=== PATIENT | female | born 1965 | race Caucasian/White ===

== ENCOUNTER 2017-02-17 04:54 | Emergency (ER) | payer SELFPAY ==
[~2017-02-17] VITALS: Ht 157.5 cm; Wt 95.3 kg
[~2017-02-17 04:54] MED LIST: FERR-193 PO; LOSA25TA14 PO
[2017-02-17 05:00] VITALS: BP 145/85
--- NOTE | 2017-02-17 05:07 | NUR ---
PT TAKEN TO BED 7
--- NOTE | 2017-02-17 05:11 | NUR ---
Dr. Redding evaluating patient at bedside.
[2017-02-17] MEDS ORDERED: NACL 0.9% 1,000 ML IV ONE (05:15)
--- NOTE | 2017-02-17 05:27 | NUR ---
Sammy ferguson in ED - 02/17/17 at [address] Redding performing pelvic exam with EMT Anju L as a female residential assistant.
--- NOTE | 2017-02-17 05:44 | NUR ---
Dr. Redding performing pelvic exam with EMT Anju L as a female straightener.
--- NOTE | 2017-02-17 05:44 | NUR ---
Female Jewish Thought Professor (ROYAL REMY EMT) accompanied ER MD female patient for Pelvic Exam.
--- NOTE | 2017-02-17 06:00 | NUR ---
Ultrasound at bedside.
[2017-02-17 06:10] LABS: BASOPHILS # (AUTO) 0.2 K/uL (0.00-0.22); BASOPHILS % (AUTO) 1.7 % (0.0-2.0); EOSINOPHILS # (AUTO) 0.1 K/uL (0-0.4); EOSINOPHILS % (AUTO) 0.9 % (0.0-4.0); HEMATOCRIT 34.1 % (36-48); LYMPHOCYTES # (AUTO) 1.9 K/uL (2.5-16.5); LYMPHOCYTES % (AUTO) 18.3 % (20.5-51.1); MEAN CORPUSCULAR HEMOGLOBIN 28 pg (27-31); MEAN CORPUSCULAR HGB CONC 32 g/dL (33-37); MEAN CORPUSCULAR VOLUME 88 fL (80-94); MONOCYTES # (AUTO) 0.7 K/uL (0.8-1.0); MONOCYTES % (AUTO) 6.3 % (1.7-9.3); NEUTROPHILS # (AUTO) 7.5 K/uL (1.8-7.7); NEUTROPHILS % (AUTO) 72.8 % (42.2-75.2); PLATELET COUNT (AUTO) 375 K/uL (140-450); RED BLOOD CELL COUNT(AUTO) 3.86 MIL/uL (4.20-5.40); RED CELL DISTRIBUTION WIDTH 13.5 % (11.6-13.7); WHITE BLOOD COUNT (AUTO) 10.4 K/uL (4.8-10.8)
[2017-02-17 06:11] LABS: ANION GAP 11.5 (8-16); CALCIUM 7.8 mg/dL (8.5-10.1); CARBON DIOXIDE 27.4 mmol/L (21-32); CREATININE 0.7 mg/dL (0.6-1.3); POTASSIUM 3.9 mmol/L (3.5-5.1); PROTHROMBIN TIME 9.5 secs (10.8-13.4)
[2017-02-17 06:15] LABS: ALBUMIN 2.7 g/dL (3.4-5.0); TOTAL BILIRUBIN 0.1 mg/dL (0.0-1.0); TOTAL PROTEIN, SERUM 6.2 g/dL (6.4-8.2)
[2017-02-17] MEDS ORDERED: ESTROGENS CONJUGATED 25 MG INJ VIAL IM ONE (06:20)
[2017-02-17] MEDS ORDERED: WATER STERILE 10 ML MC ONE (07:00)
--- NOTE | 2017-02-17 07:00 | NUR ---
REPORT TO BILLY RAUSCH
--- NOTE | 2017-02-17 08:11 | NUR ---
IV removed, catheter intact and site benign. Applied folded 4x4 gauze and tape to stop bleeding.
[2017-02-17 08:30] VITALS: BP 156/70
--- NOTE | 2017-02-17 08:30 | NUR ---
Chart checked and completed. The patient's care was reviewed and supervised by Jeanine Lan RN.
== END 2017-02-17 08:30 | disposition home or self-care (01) ==
LOC: MED 04:54
DX: N93.8 Other specified abnormal uterine and vaginal bleeding (principal); I10 Essential (primary) hypertension
CPT/HCPCS: 36415; 76856; 80053; 81002; 81025; 85025; 85610; 86886; 86900; 86901; 96360; 96361; 96372; 99285; J1410; J7030; Q0092

== ENCOUNTER 2017-04-15 23:27 | Emergency (ER) | payer SELFPAY ==
[~2017-04-15] VITALS: Ht 157.5 cm; Wt 98.0 kg
[2017-04-15 23:30] VITALS: BP 175/86
--- NOTE | 2017-04-16 00:09 | NUR ---
PATIENT AMBULATED TO BED 4.
--- NOTE | 2017-04-16 00:15 | NUR ---
51Y/F PATIENT PRESENTS TO ED WITH C/O FEVER X 1 DAYS . PT STATES HAVING PERIOD 5 DAYS, TODAY HAVING FEVER. DENIES N/V/D; SKIN IS PINK/WARM/DRY; AAOX4 WITH EVEN AND STEADY GAIT; LUNGS CLEAR BL; HR EVEN AND REGULAR; PT DENIES ANY FEVER, CP, SOB, OR COUGH AT THIS TIME; PATIENT STATES PAIN OF 0/10 AT THIS TIME; VSS; PATIENT POSITIONED FOR COMFORT; HOB ELEVATED; BEDRAILS UP X2; BED DOWN. ER MD MADE AWARE OF PT STATUS.
--- NOTE | 2017-04-16 00:45 | NUR ---
Patient being evaluated by at bedside.
--- NOTE | 2017-04-16 01:30 | NUR ---
Patient discharged with v/s stable. Written and verbal after care instructions given and explained. Patient alert, oriented and verbalized understanding of instructions. Ambulatory with steady gait. All questions addressed prior to discharge. ID band removed. Patient advised to follow up with PMD. Rx of MOTRIN 800 MG, CIPRO 500 MG given. Patient educated on indication of medication including possible reaction and side effects. Opportunity to ask questions provided and answered.
[2017-04-16 01:33] VITALS: BP 165/85
== END 2017-04-16 01:30 | disposition home or self-care (01) ==
LOC: MED 23:27
DX: N39.0 Urinary tract infection, site not specified (principal); R50.9 Fever, unspecified; I10 Essential (primary) hypertension
CPT/HCPCS: 81002; 81025; 99283

== ENCOUNTER 2017-05-05 20:07 | Emergency (ER) | payer MEDICAID ==
[~2017-05-05] VITALS: Ht 157.5 cm; Wt 98.7 kg
[2017-05-05 20:15] VITALS: BP 153/108
--- NOTE | 2017-05-05 21:06 | NUR ---
TO ER BED 7
--- NOTE | 2017-05-05 21:08 | NUR ---
PATIENT PRESENTS TO ED WITH DIZZINESS, WITH ONE MONTH MENSTRATION. PT STATES MED HX HTN. DENIES N/V/D; SKIN IS PINK/WARM/DRY; AAOX4 WITH EVEN AND STEADY GAIT; LUNGS CLEAR BL; HR EVEN AND REGULAR; PT DENIES ANY FEVER, CP, SOB, OR COUGH AT THIS TIME; PATIENT STATES PAIN OF 0/10 AT THIS TIME; VSS; PATIENT POSITIONED FOR COMFORT; HOB ELEVATED; BEDRAILS UP X2; BED DOWN. ER MD MADE AWARE OF PT STATUS.
[2017-05-05 22:28] LABS: BASOPHILS # (AUTO) 0.2 K/uL (0.00-0.22); EOSINOPHILS % (AUTO) 2.1 % (0.0-4.0); NEUTROPHILS # (AUTO) 8.5 K/uL (1.8-7.7)
[2017-05-05 22:34] LABS: BASOPHILS % (AUTO) 1.5 % (0.0-2.0); EOSINOPHILS # (AUTO) 0.3 K/uL (0-0.4); HEMATOCRIT 37.9 % (36-48); HEMOGLOBIN 12.4 g/dL (12.0-16.0); LYMPHOCYTES # (AUTO) 2.1 K/uL (2.5-16.5); MEAN CORPUSCULAR HEMOGLOBIN 30 pg (27-31); MEAN CORPUSCULAR HGB CONC 33 g/dL (33-37); MEAN CORPUSCULAR VOLUME 91 fL (80-94); MONOCYTES # (AUTO) 0.8 K/uL (0.8-1.0); MONOCYTES % (AUTO) 6.5 % (1.7-9.3); NEUTROPHILS % (AUTO) 71.9 % (42.2-75.2); PLATELET COUNT (AUTO) 443 K/uL (140-450); RED BLOOD CELL COUNT(AUTO) 4.19 MIL/uL (4.20-5.40); RED CELL DISTRIBUTION WIDTH 16.4 % (11.6-13.7); WHITE BLOOD COUNT (AUTO) 11.9 K/uL (4.8-10.8)
[2017-05-05 22:42] LABS: ALBUMIN 3.1 g/dL (3.4-5.0); ANION GAP 11.4 (8-16); CALCIUM 8.8 mg/dL (8.5-10.1); CARBON DIOXIDE 27.4 mmol/L (21-32); CREATININE 0.7 mg/dL (0.6-1.3); POTASSIUM 3.8 mmol/L (3.5-5.1); TOTAL BILIRUBIN 0.2 mg/dL (0.0-1.0); TOTAL PROTEIN, SERUM 7.2 g/dL (6.4-8.2)
[2017-05-05 22:49] LABS: CREATINE KINASE MB 0.3 ng/mL (0-3.6)
--- NOTE | 2017-05-05 23:16 | NUR ---
PT RESTING IN BED. NO SOB NOTED AT THIS TIME. WILL CONTINUE TO MONITOR.
[2017-05-05 23:53] LABS: APPEARANCE,URINE SL CLOUDY (CLEAR); BILIRUBIN,URINE NEGATIVE (NEGATIVE); BLOOD, URINE 3+ (NEGATIVE); LEUKOCYTE ESTERASE ,URINE NEGATIVE (NEGATIVE); NITRITE, URINE NEGATIVE (NEGATIVE); PROTEIN,URINE TRACE (NEGATIVE); UGLUCOSE NEGATIVE (NEGATIVE); UROBILINOGEN,URINE 0.2 EU/dL (0.2 - 1)
[2017-05-06 00:11] LABS: COLOR,URINE REDDISH (YELLOW)
[2017-05-06 00:13] LABS: BACTERIA,URINE FEW /HPF (None Seen); RBC,URINE TOO NUMEROUS TO COUN /HPF (0-5); SQUAMOUS EPITHELIAL CELL,UR 0-3 (FEW) /LPF (0-3 (FEW))
[2017-05-06 00:23] VITALS: BP 146/84
--- NOTE | 2017-05-06 00:25 | NUR ---
Patient discharged with v/s stable. Written and verbal after care instructions given and explained. Patient alert, oriented and verbalized understanding of instructions. Ambulatory with steady gait. All questions addressed prior to discharge. ID band removed. Patient advised to follow up with PMD. NO Rx WERE given. Patient educated on indication of medication including possible reaction and side effects. Opportunity to ask questions provided and answered.
== END 2017-05-06 00:24 | disposition home or self-care (01) ==
LOC: MED 20:07
DX: R42 Dizziness and giddiness (principal); R20.0 Anesthesia of skin; I10 Essential (primary) hypertension
CPT/HCPCS: 36415; 71010; 80053; 81001; 82550; 82553; 84484; 85025; 93005; 99285

== ENCOUNTER 2017-05-30 08:27 | Inpatient (IN) | payer MEDICAID ==
[~2017-05-30] VITALS: Ht 157.5 cm; Wt 97.6 kg
[2017-05-30 08:33] VITALS: BP 125/66
[2017-05-30] MEDS ORDERED: NACL 0.9% 1,000 ML IV SCH (08:40)
[2017-05-30] MEDS ORDERED: ONDANSETRON 4 MG/2 ML VIAL IVP ONE (08:40)
--- NOTE | 2017-05-30 08:41 | NUR ---
PATIENT AMBULATED TO ER BED 7.
--- NOTE | 2017-05-30 08:52 | NUR ---
PATIENT TO ER BED 8.
--- NOTE | 2017-05-30 09:03 | NUR ---
PATIENT BEING EVALUATED BY DR. ZARCO
[2017-05-30 09:04] LABS: BASOPHILS # (AUTO) 0.2 K/uL (0.00-0.22); BASOPHILS % (AUTO) 1.8 % (0.0-2.0); EOSINOPHILS # (AUTO) 0.1 K/uL (0-0.4); EOSINOPHILS % (AUTO) 1.2 % (0.0-4.0); HEMOGLOBIN 9.9 g/dL (12.0-16.0); LYMPHOCYTES # (AUTO) 1.6 K/uL (2.5-16.5); LYMPHOCYTES % (AUTO) 16.4 % (20.5-51.1); MEAN CORPUSCULAR HEMOGLOBIN 28 pg (27-31); MEAN CORPUSCULAR HGB CONC 32 g/dL (33-37); MEAN CORPUSCULAR VOLUME 89 fL (80-94); MONOCYTES # (AUTO) 0.5 K/uL (0.8-1.0); MONOCYTES % (AUTO) 4.7 % (1.7-9.3); NEUTROPHILS # (AUTO) 7.4 K/uL (1.8-7.7); NEUTROPHILS % (AUTO) 75.9 % (42.2-75.2); PLATELET COUNT (AUTO) 432 K/uL (140-450); RED BLOOD CELL COUNT(AUTO) 3.46 MIL/uL (4.20-5.40); RED CELL DISTRIBUTION WIDTH 14.4 % (11.6-13.7); WHITE BLOOD COUNT (AUTO) 9.8 K/uL (4.8-10.8)
--- NOTE | 2017-05-30 09:05 | NUR ---
US AT BEDSIDE.
--- NOTE | 2017-05-30 09:07 | NUR ---
52/F c/o vaginal bleeding for the past 3 days. Pt states hx of blood transfusions in the past. Pt states she is bleeding heavy. Denies dizziness. Denies SOB or chest pain. Denies vomiting or diarrhea. AOX4, clear speech. VSS.
[2017-05-30 09:11] LABS: ANION GAP 13.8 (8-16); CARBON DIOXIDE 25.9 mmol/L (21-32); CREATININE 0.9 mg/dL (0.6-1.3); POTASSIUM 3.7 mmol/L (3.5-5.1)
[2017-05-30 09:12] LABS: APPEARANCE,URINE TURBID (CLEAR); BILIRUBIN,URINE 1+ (NEGATIVE); BLOOD, URINE 3+ (NEGATIVE); LEUKOCYTE ESTERASE ,URINE NEGATIVE (NEGATIVE); NITRITE, URINE NEGATIVE (NEGATIVE); PH,URINE 5.5 (5.0-9.0); PROTEIN,URINE 2+ (NEGATIVE); UGLUCOSE NEGATIVE (NEGATIVE); UROBILINOGEN,URINE 0.2 EU/dL (0.2 - 1)
[2017-05-30 09:13] LABS: COLOR,URINE RED (YELLOW)
[2017-05-30 09:17] LABS: ALBUMIN 2.7 g/dL (3.4-5.0); TOTAL BILIRUBIN 0.2 mg/dL (0.0-1.0); TOTAL PROTEIN, SERUM 6.2 g/dL (6.4-8.2)
[2017-05-30 09:19] LABS: BACTERIA,URINE 1+ /HPF (None Seen); ICTOTEST NEGATIVE (NEGATIVE); MUCUS,URINE 1+ /LPF (None Seen); RBC,URINE 50-80 /HPF (0-5); SQUAMOUS EPITHELIAL CELL,UR 0-3 /LPF (0-3 (FEW)); WBC,URINE 0-3 /HPF (0-5)
--- NOTE | 2017-05-30 10:36 | NUR ---
Patient appears to be resting comfortably in bed. VSS.
[2017-05-30] MEDS ORDERED: ONDANSETRON 4 MG/2 ML VIAL IVP PRN (10:55)
[2017-05-30] MEDS ORDERED: ZOLPIDEM 5 MG TAB PO PRN (10:55)
[2017-05-30] MEDS ORDERED: HYDROcodone/APAP 5/325 MG 1 TAB TAB PO PRN (10:55)
[2017-05-30] MEDS ORDERED: ACETAMINOPHEN 325 MG TAB PO PRN (10:55)
[2017-05-30] MEDS ORDERED: LOSA50TA39 PO (11:04)
[2017-05-30] MEDS ORDERED: FERR325E14 PO (11:04)
[2017-05-30 11:26] LABS: FREE T4 (FREE THYROXINE) 1.21 ng/dL (0.76-1.46); MAGNESIUM 1.9 mg/dL (1.8-2.4); PHOSPHORUS 2.7 mg/dL (2.5-4.9); THYROID STIMULATING HORMONE 1.12 uIU/mL (0.34-3.74)
--- NOTE | 2017-05-30 11:52 | NUR ---
Patient will be admitted to care of Dr. Charles. Admited to TELE. Will go to room 106-B. Belongings list completed. Report to Cindy CERVANTES.
--- NOTE | 2017-05-30 11:58 | NUR ---
Pt transferred to Tele 106-B via gurpointblank on check grader accompaned by EMT Mone and AIRPORT CONTROL OPERATOR Letitia. All belongings sent with patient to room 106-B. VSS.
[2017-05-30 12:05] VITALS: BP 118/68
--- NOTE | 2017-05-30 12:05 | NUR ---
RECEIVED PT ON UNIT. PT ARRIVED ON [facility], [place]. AMBULATED IN ROOM AND UP TO BATHROOM. EDUCATED PT ON UNIT AND SAFETY. PT VERBALIZED UNDERSTANDING. VS: BP 118/68, HR 85, O2 97%, RR 18, TEMP 98.5. CALL LIGHT WITHIN REACH BED IN LOW POSITION. PT IN STABLE CONDITION. WILL CONTINUE TO MONITOR.
--- NOTE | 2017-05-30 13:50 | NUR ---
PT IS RESTING IN BED AT THIS TIME, NO S/S OF RESPIRATORY DISTRESS OR DISCOMFORT NOTED, CALL LIGHT WITHIN REACH.
[2017-05-30] MEDS: NACL 0.9% 1,000 ML IV SCH (15:33)
[2017-05-30 16:00] VITALS: BP 143/73
--- NOTE | 2017-05-30 16:00 | NUR ---
PT AWAKE. FAMILY AT BEDSIDE. PT IN STABLE CONDITION. WILL CONTINUE TO MONITOR.
--- NOTE | 2017-05-30 18:15 | NUR ---
PT IS RESTING IN BED USING HER CELL PHONE, CALL LIGHT WITHIN REACH.
--- NOTE | 2017-05-30 19:15 | NUR ---
ENDORSED PT TO POLISHER NUMERAL NURSE FOR CONTINUITY OF CARE. PT STABLE AT THIS TIME.
--- NOTE | 2017-05-30 19:20 | NUR ---
RECEIVED REPORTS FROM DAY RN. PATIENT RESTING IN BED, NO S/S OF ACUTE DISTRESS NOTED, RESPIRATION EVEN AND UNLABORED, PATIENT DENIES PAIN AT THIS TIME. IV INTACT AND PATENT, INFUSING NS AT 60ML/HR. CALL LIGHT WITHIN REACH, SIDE RAILS UP X 2, BED AT LOWEST POSITION. WILL CONTINUE TO MONITOR.
[2017-05-30 20:00] VITALS: BP 113/63
--- NOTE | 2017-05-30 22:14 | NUR ---
EXAMINED PATIENT'S PERINEAL PAD FOR BLEEDING, LIGHT AMOUNT OF BRIGHT RED BLOOD NOTED, PATIENT DENIES PAIN AT THIS TIME, INSTRUCTED PATIENT TO SAFE ALL THE VISHNU PADS FOR NURSING ASSESSMENT.
[2017-05-31] VITALS: BP 134/64
--- NOTE | 2017-05-31 00:15 | NUR ---
PATIENT SLEEPING IN BED, NO S/S OF ACUTE DISTRESS NOTED, RESPIRATION EVEN AND UNLABORED, CALL LIGHT WITHIN REACH, SAFETY MEASURE ENSURED, WILL CONTINUE TO MONITOR.
--- NOTE | 2017-05-31 02:05 | NUR ---
VISHNU PAD X1, MODERATED AMOUNT. PATIENT SLEEPING IN BED, NO S/S OF ACUTE DISTRESS NOTED, RESPIRATION EVEN AND UNLABORED, WILL CONTINUE TO MONITOR.
[2017-05-31 04:00] VITALS: BP 129/70
--- NOTE | 2017-05-31 04:23 | NUR ---
VISHNU PAD X 1, MODERATE AMOUNT OF BLOOD, PATIENT SLEEPING IN BED, EASY TO AROUSE, NO S/S OF ACUTE DISTRESS NOTED, WILL CONTINUE TO MONITOR.
[2017-05-31 06:12] LABS: BASOPHILS # (AUTO) 0.1 K/uL (0.00-0.22); BASOPHILS % (AUTO) 1.8 % (0.0-2.0); EOSINOPHILS # (AUTO) 0.2 K/uL (0-0.4); EOSINOPHILS % (AUTO) 2.7 % (0.0-4.0); HEMATOCRIT 24.6 % (36-48); HEMOGLOBIN 7.7 g/dL (12.0-16.0); LYMPHOCYTES # (AUTO) 2.2 K/uL (2.5-16.5); LYMPHOCYTES % (AUTO) 29.9 % (20.5-51.1); MEAN CORPUSCULAR HEMOGLOBIN 28 pg (27-31); MEAN CORPUSCULAR HGB CONC 31 g/dL (33-37); MEAN CORPUSCULAR VOLUME 90 fL (80-94); MONOCYTES # (AUTO) 0.7 K/uL (0.8-1.0); MONOCYTES % (AUTO) 8.7 % (1.7-9.3); NEUTROPHILS # (AUTO) 4.3 K/uL (1.8-7.7); NEUTROPHILS % (AUTO) 56.9 % (42.2-75.2); PLATELET COUNT (AUTO) 306 K/uL (140-450); RED BLOOD CELL COUNT(AUTO) 2.72 MIL/uL (4.20-5.40); WHITE BLOOD COUNT (AUTO) 7.5 K/uL (4.8-10.8)
--- NOTE | 2017-05-31 06:25 | NUR ---
VISHNU PADS X2, MODERATED AMOUNT OF BLOOD NOTED FOR BOTH PADS. PATIENT SLEEPING IN BED, NO S/S OF ACUTE DISTRESS NOTED, RESPIRATION EVEN AND UNLABORED, CALL LIGHT WITHIN REACH, SAFETY MEASURE ENSURED, WILL CONTINUE TO MONITOR.
[2017-05-31 06:27] LABS: INR 0.9 (0.8-1.2); PARTIAL THROMBOPLASTIN TIME 22.1 secs (22-35.6); PROTHROMBIN TIME 9.4 secs (10.8-13.4)
[2017-05-31 06:29] LABS: ANION GAP 9.2 (8-16); CALCIUM 7.7 mg/dL (8.5-10.1); CARBON DIOXIDE 26.6 mmol/L (21-32); CREATININE 0.7 mg/dL (0.6-1.3); POTASSIUM 3.8 mmol/L (3.5-5.1)
[2017-05-31 06:33] LABS: MAGNESIUM 1.8 mg/dL (1.8-2.4); PHOSPHORUS 3.1 mg/dL (2.5-4.9)
--- NOTE | 2017-05-31 06:59 | NUR ---
PATIENT HAS BEEN SCREENED AND CATEGORIZED LOW NUTRITION RISK. PATIENT WILL BE SEEN WITHIN 7 DAYS OF ADMISSION. 06/06/17 EVIN PISANO MS, RDN
--- NOTE | 2017-05-31 07:15 | NUR ---
ENDORSED PLAN OF CARE TO DAY RN, PATIENT RESTING IN BED, IN STABLE CONDITION. RESPIRATION EVEN AND UNLABORED.
--- NOTE | 2017-05-31 07:25 | NUR ---
RECEIVED REPORT FROM RABBIT BREEDER NURSE, PT IS SITTING UP IN BED, A/OX4, AMBULATORY, IV IS ON THE LT AC, PATENT, INTACT, FLUSHING WELL, SKIN IS INTACT, NO S/S OF RESPIRATORY DISTRESS OR DISCOMFORT NOTED, SAFETY/FALL PRECAUTIONS ARE IN PLACE, DISCUSSED PLAN OF CARE WITH PT, PT VERBALIZED UNDERSTANDING, CALL LIGHT WITHIN REACH, WILL CONTINUE TO MONITOR.
[2017-05-31 08:00] VITALS: BP 143/80
--- NOTE | 2017-05-31 08:00 | NUR ---
RESIDENT DOCTORS ARE AT PATIENT'S BEDSIDE SPEAKING WITH PT ABOUT PLAN OF CARE.
[2017-05-31] MEDS: NACL 0.9% 1,000 ML IV SCH (08:05)
[2017-05-31] MEDS: DOCUSATE SODIUM 100 MG GELCAP PO SCH (08:07)
[2017-05-31] MEDS ORDERED: FERROUS SULFATE 325 MG TABEC PO SCH (09:00)
[2017-05-31] MEDS ORDERED: LOSARTAN 50 MG TAB PO SCH (09:00)
[2017-05-31 09:13] LABS: HEMOGLOBIN A1C 4.9 % (4.8-5.6); T4 (THYROXINE) 10.8 ug/dL (4.5-12.0)
--- NOTE | 2017-05-31 10:11 | NUR ---
PATIENT IS SITTING IN BED, WATCHING TV, NO S/S OF RESPIRATORY DISTRESS OR DISCOMFORT NOTED, CALL LIGHT IS WITHIN REACH.
--- NOTE | 2017-05-31 10:45 | NUR ---
I LET THE PATIENT KNOW THAT THE RESIDENT DOCTOR HAD CHANGED HER DIET TO NPO EXCEPT MEDS. I ASKED HER IF SHE WOULD LIKE TO RECEIVED MEDICATION FOR HER HEADACHE, PT STATED HER HEADACHE WAS TOLERABLE AND DID NOT NEED ANY MEDICATION.
--- NOTE | 2017-05-31 11:28 | NUR ---
PT IS RESTING IN BED TALKING ON HER CELL PHONE, CALL LIGHT WITHIN REACH.
[2017-05-31 12:00] VITALS: BP 158/85
[2017-05-31] MEDS ORDERED: APAP/BUTAL/CAFF 325/50/40 MG 1 TAB PO PRN (13:25)
--- NOTE | 2017-05-31 13:30 | NUR ---
PT IS SLEEPING IN BED AT THIS TIME, CALL LIGHT WITHIN REACH.
--- NOTE | 2017-05-31 14:05 | NUR ---
DR. BOATENG IN PATIENT'S ROOM SPEAKING WITH PT.
[2017-05-31 14:54] LABS: BASOPHILS # (AUTO) 0.1 K/uL (0.00-0.22); BASOPHILS % (AUTO) 1.1 % (0.0-2.0); EOSINOPHILS # (AUTO) 0.2 K/uL (0-0.4); EOSINOPHILS % (AUTO) 2.5 % (0.0-4.0); HEMATOCRIT 24.8 % (36-48); HEMOGLOBIN 8.1 g/dL (12.0-16.0); LYMPHOCYTES # (AUTO) 1.7 K/uL (2.5-16.5); LYMPHOCYTES % (AUTO) 19.1 % (20.5-51.1); MEAN CORPUSCULAR HEMOGLOBIN 29 pg (27-31); MEAN CORPUSCULAR HGB CONC 33 g/dL (33-37); MEAN CORPUSCULAR VOLUME 90 fL (80-94); MONOCYTES # (AUTO) 0.7 K/uL (0.8-1.0); MONOCYTES % (AUTO) 7.3 % (1.7-9.3); NEUTROPHILS # (AUTO) 6.2 K/uL (1.8-7.7); PLATELET COUNT (AUTO) 350 K/uL (140-450); RED BLOOD CELL COUNT(AUTO) 2.77 MIL/uL (4.20-5.40); WHITE BLOOD COUNT (AUTO) 8.9 K/uL (4.8-10.8)
[2017-05-31 16:00] VITALS: BP 156/87
--- NOTE | 2017-05-31 16:15 | NUR ---
PT IS RESTING IN BED, FAMILY IS AT BEDSIDE, CALL LIGHT WITHIN REACH.
--- NOTE | 2017-05-31 18:10 | NUR ---
PT RESTING IN BED WATCHING TV, PATIENT'S SON IS AT BEDSIDE.
--- NOTE | 2017-05-31 19:05 | NUR ---
ENDORSED PT TO PROPERTY CLAIM REP NURSE FOR CONTINUITY OF CARE, PT STABLE AT THIS TIME.
--- NOTE | 2017-05-31 19:10 | NUR ---
RECEIVED REPORTS FROM DAY RN, PATIENT IS SITTING UP IN BED AND USING CELLPHONE, NO S/S OF ACUTE DISTRESS NOTED, RESPIRATION EVEN AND UNLABORED, IV PATENT AND INTACT, INFUSING NS AT 10ML/HR. CALL LIGHT WITHIN REACH, SAFETY MEASURE ENSURED, WILL CONTINUE TO MONITOR.
[2017-05-31 20:00] VITALS: BP 133/81
[2017-05-31] MEDS: FERROUS SULFATE 325 MG TABEC PO SCH (20:23)
--- NOTE | 2017-05-31 20:24 | NUR ---
PM MEDICATION GIVEN, PATIENT TOLERATED WELL. WILL CONTINUE TO MONITOR.
--- NOTE | 2017-05-31 22:25 | NUR ---
MADE ROUNDS, PATIENT SLEEPING IN BED, NO S/S OF ACUTE DISTRESS NOTED, RESPIRATION EVEN AND UNLABORED, CALL LIGHT WITHIN REACH, SAFETY MEASURE ENSURED, WILL CONTINUE TO MONITOR.
[2017-06-01] VITALS: BP 145/88
--- NOTE | 2017-06-01 00:05 | NUR ---
VITAL SIGNS TAKEN, STABLE, NO S/S OF ACUTE DISTRESS NOTED, RESPIRATION EVEN AND UNLABORED, CALL LIGHT WITHIN REACH, SAFETY MEASURE ENSURED, WILL CONTINUE TO MONITOR.
--- NOTE | 2017-06-01 04:49 | NUR ---
PATIENT SLEEPING IN BED, NO S/S OF ACUTE DISTRESS NOTED, RESPIRATION EVEN AND UNLABORED, CALL LIGHT WITHIN REACH, SAFETY MEASURE ENSURED, WILL CONTINUE TO MONITOR.
[2017-06-01 05:53] LABS: BASOPHILS # (AUTO) 0.2 K/uL (0.00-0.22); EOSINOPHILS # (AUTO) 0.2 K/uL (0-0.4); EOSINOPHILS % (AUTO) 2.7 % (0.0-4.0); HEMATOCRIT 24.4 % (36-48); LYMPHOCYTES # (AUTO) 2.3 K/uL (2.5-16.5); LYMPHOCYTES % (AUTO) 28.2 % (20.5-51.1); MEAN CORPUSCULAR HEMOGLOBIN 30 pg (27-31); MEAN CORPUSCULAR HGB CONC 33 g/dL (33-37); MEAN CORPUSCULAR VOLUME 90 fL (80-94); MONOCYTES # (AUTO) 0.6 K/uL (0.8-1.0); MONOCYTES % (AUTO) 7.8 % (1.7-9.3); NEUTROPHILS # (AUTO) 4.9 K/uL (1.8-7.7); NEUTROPHILS % (AUTO) 58.3 % (42.2-75.2); PLATELET COUNT (AUTO) 320 K/uL (140-450); RED BLOOD CELL COUNT(AUTO) 2.71 MIL/uL (4.20-5.40); RED CELL DISTRIBUTION WIDTH 13.9 % (11.6-13.7); WHITE BLOOD COUNT (AUTO) 8.2 K/uL (4.8-10.8)
--- NOTE | 2017-06-01 07:10 | NUR ---
ENDORSED PLAN OF CARE TO DAY RN. PATIENT IS IN STABLE CONDITION.
--- NOTE | 2017-06-01 07:11 | NUR ---
RECEIVED CARE OF PT FROM SALES CONSULTING DIRECTOR NURSE AT BEDSIDE. PT IS A&OX4 JAPANESE SPEAKING ONLY. NO DISTRESS NOTED. NO COMPLAINTS OR PAIN AT THIS TIME. PT STATED SHE HAS ON AND OFF BLEEDING. WILL PROVIDE MORE PADS AND MONITOR. PT HAS IV ON L AC 20 G RUNNING NS@10. CALL LIGHT WITHIN REACH. WILL CONTINUE TO MONITOR.
[2017-06-01 08:00] VITALS: BP 141/78
[2017-06-01] MEDS: NACL 0.9% 1,000 ML IV SCH (08:00)
[2017-06-01] MEDS ORDERED: FERR-18 PO (08:48)
[2017-06-01] MEDS ORDERED: LOSA50TA1 PO (08:48)
[2017-06-01] MEDS ORDERED: ASCO-166 PO (08:48)
[2017-06-01] MEDS ORDERED: FIO PO (08:48)
[2017-06-01] MEDS ORDERED: ASCORBIC ACID 500 MG TAB PO SCH (09:00)
[2017-06-01] MEDS ORDERED: LOSARTAN 50 MG TAB PO SCH (09:00)
[2017-06-01] MEDS: FERROUS SULFATE 325 MG TABEC PO SCH (09:08)
[2017-06-01] MEDS: DOCUSATE SODIUM 100 MG GELCAP PO SCH (09:08)
--- NOTE | 2017-06-01 09:30 | NUR ---
PT IS RESTING COMFORTABLY IN BED. CALL LIGHT WITHIN REACH. WILL CONTINUE TO MONITOR.
[2017-06-01 10:58] VITALS: BP 141/78
--- NOTE | 2017-06-01 11:00 | NUR ---
PT HAS NO COMPLAINTS AT THIS TIME. NO DISTRESS NOTED. CALL LIGHT WITHIN REACH. WILL CONTINUE TO MONITOR.
--- NOTE | 2017-06-01 12:20 | NUR ---
USED TALENT ACQUISITION DIRECTOR PHONE [phone] TO GIVE DC INSTRUCTIONS. PRESCRIPTIONS GIVEN. PT VERBALIZED UNDERSTANDING. IV REMOVED CANNULA INTACT. CALL LIGHT WITHIN REACH. PT WILL CALL WHEN READY TO GO. PT REFUSED WHEELCHAIR.
--- NOTE | 2017-06-01 12:40 | NUR ---
WHEELED PT OUT OF HOSPITAL. PT IN STABLE CONDITION.
[2017-06-02 06:21] LABS: FOLIC ACID 10.1 ng/mL (>3.0)
== END 2017-06-01 12:40 | disposition home or self-care (01) | DRG 532 ==
LOC: MED 08:27 → MTU 11:46
PROVIDERS: ADMIT Family Medicine; ATTEND Family Medicine
DX: D25.9 Leiomyoma of uterus, unspecified (principal); N17.0 Acute kidney failure with tubular necrosis; E43 Unspecified severe protein-calorie malnutrition; D62 Acute posthemorrhagic anemia; I10 Essential (primary) hypertension; Z68.39 Body mass index [BMI] 39.0-39.9, adult
CPT/HCPCS: 36415; 76830; 80048; 80053; 81001; 81025; 82150; 82607; 82728; 82746; 83036; 83540; 83690; 83735; 84100; 84436; 84439; 84443; 85025; 85045; 85610; 85730; 87081; 96361; 96374; 99285; J2405; J7030; Q0092

== ENCOUNTER 2017-07-30 08:13 | Emergency (ER) | payer SELFPAY ==
[~2017-07-30] VITALS: Ht 154.9 cm; Wt 99.3 kg
[~2017-07-30 08:13] MED LIST changes: +ASCO500T93 PO; +FERR-18 PO; -FERR-193 PO; +FIO PO; -LOSA25TA14 PO; +LOSA50TA1 PO
--- NOTE | 2017-07-30 08:21 | NUR ---
Patient ambulated to bed 7.
[2017-07-30 08:26] VITALS: BP 196/91
--- NOTE | 2017-07-30 08:32 | NUR ---
PATIENT PRESENTS TO ED WITH with throat discomfort x 5 days, left knee pain x 3 months and intermittent dizziness . PT STATES her throat discomfort is the most concerning to her at this time---worse at night--denies cough . DENIES N/V/D; SKIN IS PINK/WARM/DRY; AAOX4 WITH EVEN AND STEADY GAIT; LUNGS CLEAR BL; HR EVEN AND REGULAR; PT DENIES ANY FEVER, CP, SOB, OR COUGH AT THIS TIME; PATIENT STATES PAIN OF 9/10 AT THIS TIME; VSS; PATIENT POSITIONED FOR COMFORT; HOB ELEVATED; BEDRAILS UP X2; BED DOWN. ER MD MADE AWARE OF PT STATUS.
--- NOTE | 2017-07-30 08:35 | NUR ---
pt to x-ray via wheel chair
--- NOTE | 2017-07-30 08:44 | NUR ---
pt returned from radiology via wheel chair
[2017-07-30 09:07] LABS: FREE T4 (FREE THYROXINE) 1.03 ng/dL (0.76-1.46); THYROID STIMULATING HORMONE 1.19 uIU/mL (0.34-3.74)
[2017-07-30] MEDS ORDERED: KETOROLAC 30 MG/ML VIAL IM ONE (09:15)
--- NOTE | 2017-07-30 09:51 | NUR ---
Patient discharged with v/s stable. Written and verbal after care instructions given and explained. Patient alert, oriented and verbalized understanding of instructions. Ambulatory with steady gait. All questions addressed prior to discharge. ID band removed. Patient advised to follow up with PMD. Rx of macrobid/naprosyn given. Patient educated on indication of medication including possible reaction and side effects. Opportunity to ask questions provided and answered. lab results handed to pt and encouraged to make an appt with pmd at once to address her many complaints---pt stated she can not recall her last physical
[2017-07-30 09:53] VITALS: BP 189/97
== END 2017-07-30 09:51 | disposition home or self-care (01) ==
LOC: MED 08:13
DX: J02.9 Acute pharyngitis, unspecified (principal); M25.562 Pain in left knee; K21.9 Gastro-esophageal reflux disease without esophagitis; I10 Essential (primary) hypertension; Z79.899 Other long term (current) drug therapy
CPT/HCPCS: 36415; 70360; 84439; 84443; 96372; 99285; J1885

== ENCOUNTER → 2017-08-12 | Emergency (ER) | payer SELFPAY ==
[~2017-08-12] VITALS: Ht 154.9 cm; Wt 96.3 kg
[2017-08-12 15:34] VITALS: BP 174/92
--- NOTE | 2017-08-12 15:44 | NUR ---
Patient to bed 6 at this time.
--- NOTE | 2017-08-12 16:05 | NUR ---
52 F BIB SELF WITH C/O INCREASED URINARY FREQUENCY ; PT ALSO REPORTS OF 2/10 "DULL" INTERMITTENT SUPRAPUBIC PAIN; PT STATES RECENTLY HAVING FIBROID REMOVAL SURGERY; PT GENE ANY HEMATURIA; ENIES N/V/D; SKIN IS PINK/WARM/DRY; AOX4 WITH EVEN AND STEADY GAIT; RR ARE EVEN AND UNLABORED; PT DENIES ANY FEVER AT THIS TIME; VSS; PATIENT POSITIONED FOR COMFORT; HOB ELEVATED; ALL NEEDS MET AT THIS TIME; WILL CONTINUE TO MONITOR
[2017-08-12 16:19] VITALS: BP 159/90
== END | disposition home or self-care (01) ==
LOC: MED 15:29
DX: N39.0 Urinary tract infection, site not specified (principal); K21.9 Gastro-esophageal reflux disease without esophagitis; I10 Essential (primary) hypertension; Z79.899 Other long term (current) drug therapy
CPT/HCPCS: 81002; 81025; 99283

== ENCOUNTER 2019-12-24 18:05 | Emergency (ER) | payer MEDICAID ==
[~2019-12-24] VITALS: Ht 152.4 cm; Wt 86.2 kg
[2019-12-24 18:11] VITALS: BP 175/84
--- NOTE | 2019-12-24 18:21 | NUR ---
AMB TO BED 02
--- NOTE | 2019-12-24 18:35 | NUR ---
ATE [place] TODAY AND C/O HEARTBURN FROM EPIGASTRIUM UPWARDS. PT AWAKE, ALERT, AFIBRILE , AMBULATORY WITH STEADY GAIT . EPIGASTRIC TENDERNESS NOTED . 1 EPISODE OF VOMITING OF RECENTLY INGESTED FOOD IN AM.NO MEDS TAKEN. HX- HTN, GASTRITIS
--- NOTE | 2019-12-24 19:11 | NUR ---
give report to kevin kmibrough.
[2019-12-24] MEDS ORDERED: DICYCLOMINE HCL LIQUID 10 MG/5 ML UDC PO ONE (19:25)
[2019-12-24] MEDS ORDERED: ALUMINUM HYD/MAG/SIMETHICONE 30 ML UDC PO ONE (19:25)
[2019-12-24] MEDS ORDERED: LIDOCAINE VISCOUS 2% 20 ML UDC PO ONE (19:25)
[2019-12-24] MEDS ORDERED: PANTOPRAZOLE 40 MG TABEC PO ONE (19:25)
[2019-12-24] MEDS ORDERED: KETOROLAC 15 MG/ML VIAL IM ONE (19:45)
--- NOTE | 2019-12-24 20:08 | NUR ---
PT C/O EPIGASTRIC PAIN. PT SEEN BU AND ORDERS WRITTEN. MEDICATION GIVEN TO PT. PT TOLERATED WELL. CONTINUE TO MONITOR
--- NOTE | 2019-12-24 21:11 | NUR ---
PT FEELING MUCH BETTER AFTER MEDICATIONS. DX - GASTRITIS. ACI WITH RX GIVEN TO PT. PT SDISCHARGED HOME TO FOLLOW UP WITH PMD.
[2019-12-24 21:13] VITALS: BP 169/84
== END 2019-12-24 21:11 | disposition home or self-care (01) ==
LOC: MED 18:05
DX: K29.70 Gastritis, unspecified, without bleeding (principal); K21.9 Gastro-esophageal reflux disease without esophagitis; I10 Essential (primary) hypertension; Z79.899 Other long term (current) drug therapy
CPT/HCPCS: 96372; 99283; J1885

== ENCOUNTER 2019-12-25 13:11 | Emergency (ER) | payer MEDICAID ==
[~2019-12-25] VITALS: Ht 157.5 cm; Wt 86.2 kg
[2019-12-25 13:20] VITALS: BP 145/84
--- NOTE | 2019-12-25 13:20 | NUR ---
C/O RUQ ABDOMINAL PAIN RADIATING TO BACK X3DAYS. SEEN HERE YESTERDAY FOR GASTRITIS ,SAME S/S , GOT PROTONIX.PT AWAKE , ALERT , AFIBRILE , AMBULATORY WITH STEADY GAIT. EPIGASTRIC TENDERNESS . MED HX: GASTRITIS, HTN
--- NOTE | 2019-12-25 13:25 | NUR ---
PT AMBULATED TO ER BED 02
--- NOTE | 2019-12-25 13:30 | NUR ---
DR FAN AT BEDSIDE EVALUATING PT.
[2019-12-25] MEDS ORDERED: MORPHINE SULFATE 4 MG/ML SYR IVP ONE (13:40)
[2019-12-25] MEDS ORDERED: NACL 0.9% 1,000 ML IV ONE (13:40)
[2019-12-25 14:02] LABS: BASOPHILS # (AUTO) 0.1 K/uL (0.00-0.22); BASOPHILS % (AUTO) 0.7 % (0.0-2.0); EOSINOPHILS % (AUTO) 0.1 % (0.0-4.0); HEMATOCRIT 37.1 % (36-48); HEMOGLOBIN 12.1 g/dL (12.0-16.0); LYMPHOCYTES # (AUTO) 1.3 K/uL (2.5-16.5); LYMPHOCYTES % (AUTO) 9.2 % (20.5-51.1); MEAN CORPUSCULAR HEMOGLOBIN 28 pg (27-31); MEAN CORPUSCULAR HGB CONC 33 g/dL (33-37); MEAN CORPUSCULAR VOLUME 86.2 fL (80-94); MONOCYTES # (AUTO) 1.3 K/uL (0.8-1.0); MONOCYTES % (AUTO) 9.7 % (1.7-9.3); NEUTROPHILS # (AUTO) 10.9 K/uL (1.8-7.7); NEUTROPHILS % (AUTO) 80.3 % (42.2-75.2); PLATELET COUNT (AUTO) 331 K/uL (140-450); WHITE BLOOD COUNT (AUTO) 13.6 K/uL (4.8-10.8)
[2019-12-25 14:09] LABS: APPEARANCE,URINE CLEAR (CLEAR); BILIRUBIN,URINE NEGATIVE (NEGATIVE); BLOOD, URINE TRACE-I (NEGATIVE); COLOR,URINE YELLOW (YELLOW); LEUKOCYTE ESTERASE ,URINE TRACE (NEGATIVE); NITRITE, URINE NEGATIVE (NEGATIVE); PH,URINE 7.5 (5.0-9.0); UGLUCOSE NEGATIVE (NEGATIVE)
[2019-12-25 14:16] LABS: ALBUMIN 3.5 g/dL (3.4-5.0); ANION GAP 6.4 (8-16); CARBON DIOXIDE 34.6 mmol/L (21-32); CREATININE 0.7 mg/dL (0.6-1.3); TOTAL BILIRUBIN 0.6 mg/dL (0.0-1.0)
--- NOTE | 2019-12-25 15:00 | NUR ---
Patient discharged with v/s stable. Written and verbal after care instructions given and dr daniels explained regarding cholilithiasis. Patient alert, oriented and verbalized understanding of instructions. Ambulatory with steady gait. All questions addressed prior to discharge. ID band removed. Patient advised to follow up with PMD. Patient educated on indication of medication including possible reaction and side effects. Opportunity to ask questions provided and answered.Dr daniels discharge pt.
[2019-12-25 15:01] LABS: WBC,URINE 0-5 /HPF (0-5)
[2019-12-25 15:03] VITALS: BP 145/84
== END 2019-12-25 15:00 | disposition home or self-care (01) ==
LOC: MED 13:11
DX: K80.80 Other cholelithiasis without obstruction (principal); I10 Essential (primary) hypertension; Z79.899 Other long term (current) drug therapy
CPT/HCPCS: 36415; 76705; 80053; 81001; 82150; 83690; 85025; 99284; J2270; J7030; Q0092